=== PATIENT | female | born 1975 | race African-American/Black ===

== ENCOUNTER 2018-01-02 01:42 | Emergency (ER) | payer OTHER ==
[2018-01-02 01:55] VITALS: BP 110/63; PULSE 82; TEMP 98.6; BMI 31.2
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
== END 2018-01-02 02:49 | disposition home or self-care (01) ==
LOC: JER 01:42
DX: S63.617A Unspecified sprain of left little finger, initial encounter (principal); W50.0XXA Accidental hit or strike by another person, initial encounter; Y93.F9 Activity, other caregiving; Y92.238 Other place in hospital as the place of occurrence of the external cause; Y99.0 Civilian activity done for income or pay; I10 Essential (primary) hypertension
CPT/HCPCS: 99281-25

== ENCOUNTER 2020-03-29 12:56 | Emergency (ER) | payer OTHER ==
[2020-03-29 13:06] VITALS: BP 155/86; PULSE 68; TEMP 98.2; BMI 30.8
[2020-03-29] MEDS ORDERED: METHOCARBAMOL 500 MG TABLET PO ONE (13:21)
[2020-03-29] MEDS ORDERED: LIDOCAINE 5% TOPICAL PATCH TP ONE (13:21)
[2020-03-29] MEDS ORDERED: KETOROLAC TROMETHAMINE 30 MG/1 ML VIAL IM ONE (13:21)
[2020-03-29] MEDS ORDERED: LIDOCAINE 5% TOPICAL PATCH ONE (13:22)
[2020-03-29] MEDS ORDERED: KETOROLAC TROMETHAMINE 30 MG/1 ML VIAL ONE (13:23)
[2020-03-29] MEDS ORDERED: METHOCARBAMOL 500 MG TABLET ONE (13:23)
--- NOTE | 2020-03-29 13:32 | PDOC ---
History of Present Illness - General Chief Complaint: Back Pain Stated Complaint: BACK PAIN Time Seen by Provider: 03/29/20 13:09 History Source: Patient Exam Limitations: Clinical Condition - History of Present Illness Initial Comments: 03/29/20 13:38 Patient with history of chronic back pain being followed by orthopedics and being treated for sciatica present with complaint of worsening right lower back pain radiating to right posterior thigh. Patient report symptoms has been going on for over a year now and being followed by orthopedics and was referred for MRI of the lumbar spine 4 days ago which she is waiting for results. Patient reported she has been treated with diclofenac by orthopedics but has not been helping the pain. Denies saddle paresthesia, urinary or fecal incontinence. Patient reported increased pain to right lower back with ambulation or getting up from sitting or laying position. Denies any other symptoms. Denies urinary frequency, dysuria, burning with urination or urinary urgency. Reports last menstrual. 3 years ago Occurred: reports: other (chronic back pain) Pain Location: reports: back Method of Injury: Yes: unknown Modifying Factors: improves with: pain medication (diclofenac) Loss of Consciousness: no loss of consciousness Associated Symptoms (Fall): denies symptoms Past History - Medical History Allergies/Adverse Reactions: Allergies Allergy/AdvReac Type Severity Reaction Status Date / Time No Known Allergies Allergy Verified 11/25/19 12:15 Home Medications: Ambulatory Orders Methocarbamol [Robaxin -] 500 mg PO BID PRN #20 tablet 03/29/20 Methylprednisolone [Medrol Dose Srikanth] 4 mg PO ASDIR #21 tablet 03/29/20 COPD: No HTN: Yes - Reproductive History Is Patient Now?: No - Psycho-Social/Smoking History Smoking History: Never smoked Have you smoked in the past 12 months: No - Substance Abuse Hx (Audit-C & DAST Scrn) How often the patient has a drink containing alcohol: Never Score: In Men: 4 or > Positive; In Women: 3 or > Positive: 0 Screen Result (Pos requires Nsg. Audit-10AR): Negative Review of Systems - Review of Systems Able to Perform ROS?: Yes Is the patient limited Spanish proficient: No Constitutional: No: Chills, Fever, Malaise HEENTM: No: Symptoms Reported Respiratory: No: Symptoms reported Cardiac (ROS): No: Symptoms Reported ABD/GI: No: Symptoms Reported, Nausea, Vomiting : No: Symptoms Reported, Burning, Dysuria, Discharge, Frequency, Flank Pain, Urgency Musculoskeletal: Yes: Symptoms Reported, See HPI, Back Pain (right lower back) Integumentary: No: Symptoms Reported Neurological: No: Symptoms reported, Numbness, Paresthesia, Tingling All Other Systems: Reviewed and Negative *Physical Exam - Vital Signs Last Vital Signs Temp Pulse Resp BP Pulse Ox 98.2 F 68 20 155/86 100 03/29/20 13:00 03/29/20 13:00 03/29/20 13:00 03/29/20 13:00 03/29/20 13:00 - Physical Exam 03/29/20 13:46 GENERAL: Well developed, well nourished. Awake and alert in moderate acute distress. PULMONARY: No evidence of respiratory distress. MUSCULOSKELETAL : mild tenderness over posterior paravertebral muscle of lumbosacral spine of L3-L5 on right sides. no midline tenderness. No bony deformities SKIN: Warm and dry. Normal capillary refill. NEUROLOGICAL: Alert, awake, appropriate. No motor deficits in the lower extremities. Gait is normal without ataxia. PSYCHIATRIC: Cooperative. Good eye contact. Appropriate mood and affect. General Appearance: Yes: Nourished, Appropriately Dressed. No: Apparent Distress HEENT: positive: Normal ENT Inspection Respiratory/Chest: negative: Respiratory Distress, Accessory Muscle Use Gastrointestinal/Abdominal: positive: Normal Bowel Sounds. negative: Tender Medical Decision Making - Medical Decision Making 03/29/20 13:42 Patient with history of chronic back pain being followed by orthopedics and being treated for sciatica present with complaint of worsening right lower back pain radiating to right posterior thigh. Patient report symptoms has been going on for over a year now and being followed by orthopedics and was referred for MRI of the lumbar spine 4 days ago which she is waiting for results. Patient reported she has been treated with diclofenac by orthopedics but has not been helping the pain. Denies saddle paresthesia, urinary or fecal incontinence. Patient reported increased pain to right lower back with ambulation or getting up from sitting or laying position. Denies any other symptoms. Denies urinary frequency, dysuria, burning with urination or urinary urgency. Reports last menstrual. 3 years ago Exam significant for moderate tenderness to right paravertebral muscle of lumbarsacral spine over L3-S1. No midline tenderness. No radiculopathy. Tenderness to right lower back worsening with external rotation of the hip to the left. No CVA tenderness. Patient symptoms consistent with sciatica. Reviewed patient MRI done in this hospital 4 days ago which shows bulging disks of L4-L5 with mild indentation on the nerve which is likely the cause of patient sciatica. Toradol 30 mg IM given for pain and Robaxin 500 mg p.o. given for spasm. Patient given lidocaine topical patch to help with pain. Patient stable for discharge on Medrol pack for anti-inflammatory effect and Robaxin for spasm with follow-up with neurosurgery for management of bulging disc with pinched nerve causing sciatica. Patient left department without complication and ambulating by herself Discharge - Discharge Information Problems reviewed: Yes Clinical Impression/Diagnosis: Lumbago with sciatica, right side Qualifiers: Chronicity: chronic Back pain laterality: right Qualified Code(s): M54.41 - Lumbago with sciatica, right side Condition: Stable Disposition: HOME - Admission No - Additional Discharge Information Prescriptions: Methylprednisolone [Medrol Dose Srikanth] 4 mg PO ASDIR #21 tablet Methocarbamol [Robaxin -] 500 mg PO BID PRN #20 tablet PRN Reason: Back Pain - Follow up/Referral Referrals: Boom Mejias MD, FAANS [Staff Physician] - - Patient Discharge Instructions Patient Printed Discharge Instructions: DI for Back Pain With Sciatica Additional Instructions: Your back MRI which you were given a copy of the results shows bulging disks in the lower back with pinched nerve. Take prescribed medication as prescribed for pain. Follow-up referred orthopedic photogrammetric compilation specialist as soon as possible for management of sciatica from nerve impingement - Post Discharge Activity Work/Back to School Note: Back to Work
== END 2020-03-29 13:43 | disposition home or self-care (01) ==
LOC: JER 12:56 → JERFT 12:56
PROC: 3E0233Z Introduction of Anti-inflammatory into Muscle, Percutaneous Approach (ICD-10-PCS; principal; 2020-03-29)
DX: M54.41 Lumbago with sciatica, right side (principal)
CPT/HCPCS: 99284-25